=== PATIENT | female | born 1990 | race Caucasian/White ===

== ENCOUNTER → 2018-01-31 | Outpatient (CLI) | payer OTHER ==
--- NOTE | 2018-01-31 10:48 | US ---
EXAMINATION TYPE: Transabdominal DATE OF EXAM: 11/12/17 COMPARISON: NONE CLINICAL HISTORY: Z36 Confirm Dates. Patient states being unsure on LMP. Confirm dates. EXAM PERFORMED: Transabdominal (TA) EXAM MEASUREMENTS: GESTATIONAL AGE / DATING Dates by LMP: (10 weeks/2 days) EDC: 08/27/2018 Dates by Current Scan for: (11 weeks/5 days) EDC: 08/17/2018 MATERNAL ANATOMY Uterus: 12.8 x 7.0 x 6.2 cm Right Ovary: 3.3 x 2.0 x 1.9 cm Left Ovary: 3.0 x 1.6 x 1.4 cm Post CDS / Adnexa: no free fluid Presence of free fluid: no Presence of corpus luteal cyst: no Presence of subchorionic bleed: no GESTATION / SURVEY CRL: 5.0 cm (11 weeks/5 days) MSD: Seen, not measured Yolk Sac (normal less than 6mm): 4.9 mm Heart Rate: 171 bpm Rhythm: Normal IUP: Viable IUP Date of LMP: 11/20/2017, Beta HcG (if available): Not available at this time Single live IUP measuring 11 weeks 5 days. IMPRESSION: Single intrauterine gestation estimated at 11 weeks 5 days gestation based on the crown-rump length. This would have a calculated EDC of 08/17/2018.
== END | disposition home or self-care (01) ==
LOC: RADUSWWP 09:48
PROVIDERS: ATTEND Obstetrics & Gynecology
DX: Z36.9 Encounter for antenatal screening, unspecified (principal)
CPT/HCPCS: 76801

== ENCOUNTER 2018-08-14 06:09 | Inpatient (IN) | payer OTHER ==
--- NOTE | 2018-08-13 20:22 | P.HPOB ---
History of Present Illness H&P Date: 08/13/18 Chief Complaint: Scheduled repeat section with tubal ligation This is a 27-year-old female 4 para 2 with an estimated date of confinement of 08/17/2018, estimated gestational age of 39-4/7 weeks, who presents to labor and delivery for scheduled repeat section with bilateral partial salpingectomy for family planning. She admits to good movement. She denies any regular contractions. Her course has been essentially uncomplicated. labs: Hepatitis B surface antigen-negative RPR-nonreactive Rubella-immune Blood type-A- Antibody screen-negative Hemoglobin-12.5 Random glucose-116 Obstetrical ultrasound-normal anatomy Quad screen-negative One hour Glucola-147 Three-hour Glucola-within normal limits RhoGAM was given at 28 weeks Group B streptococcus-negative Obstetrical history: . History of 2 deliveries. History of 1 miscarriage. Gynecologic history: History of chlamydia treated in the past. Social history: She is single. She works in a factory. Review of Systems Constitutional: Denies chills, Denies fever Eyes: denies blurred vision, denies pain Ears, nose, mouth and throat: Denies headache, Denies sore throat Cardiovascular: Denies chest pain, Denies shortness of breath Respiratory: Denies cough Gastrointestinal: Reports abdominal pain (Irregular contractions) Genitourinary: Reports pelvic pain, Reports Musculoskeletal: Reports low back pain Integumentary: Denies pruritus, Denies rash Neurological: Denies numbness, Denies weakness Psychiatric: Denies anxiety, Denies depression Past Medical History Past Medical History: No Reported History History of Any Multi-Drug Resistant Organisms: None Reported Past Surgical History: Section Past Anesthesia/Blood Transfusion Reactions: No Reported Reaction Past Psychological History: No Psychological Hx Reported Smoking Status: Never smoker Past Alcohol Use History: None Reported Past Drug Use History: None Reported - Past Family History Father Family Medical History: Hypertension Medications and Allergies Home Medications Medication Instructions Recorded Confirmed Type Qfo-Tqtk-Lejku Acid 08/13/18 History [-U Capsule (formulary)] Allergies Allergy/AdvReac Type Severity Reaction Status Date / Time amoxicillin [Amoxicillin] Allergy Unknown Verified 10/05/14 14:48 Childhood Exam Osteopathic Statement: *. No significant issues noted on an osteopathic structural exam other than those noted in the History and Physical/Consult. HEENT: Within normal limits Heart: Regular rate and rhythm Lungs: Clear to auscultation bilaterally Abdomen: Cervix: Closed/60%/-2 heart tones: 140s by Doppler Extremities: Negative Homans Assessment and Plan (1) Family planning Status: Acute Code(s): Z30.09 - ENCOUNTER FOR [facility] GENERAL CNSL AND ADVICE ON CONTRACEPTION SNOMED Code(s): 945507271 (2) 39 weeks gestation of Status: Acute Code(s): Z3A.39 - 39 WEEKS GESTATION OF SNOMED Code( s): 59169134 Plan: Proceed with repeat low transverse section with bilateral partial salpingectomy. I have discussed the risks, benefits, and alternative therapies for the above- mentioned procedure and for both sedation/anesthesia as well as necessary blood products administration, if indicated, as they pertain to this patient. The patient has indicated her understanding and acceptance of the risks and procedures discussed.
[2018-08-14] MEDS ORDERED: LIDOCAINE 1% 20 ML VIAL (10MG/ML) FOR IV START INTRADERMA PRN (06:23)
[2018-08-14] MEDS ORDERED: ceFAZolin IN SWFI 2 GM/20 ML SYRINGE IVP ONE (06:23)
[2018-08-14] MEDS ORDERED: LACTATED RINGERS 1,000 ML IV ONE (06:23)
[2018-08-14] MEDS ORDERED: CITRIC ACID-SODIUM CITRATE 15 ML CUP PO ONE (06:23)
[2018-08-14 06:34] VITALS: BMI 45.3
[2018-08-14 07:01] LABS: Anisocytosis Slight; Basophils % (A) 0 %; Eosinophils # (A) 0.1 k/uL (0-0.7); Eosinophils % (A) 1 %; HCT 34.8 % (34.0-46.0); HGB 11.5 gm/dL (11.4-16.0); Lymphocytes # (A) 2.5 k/uL (1.0-4.8); Lymphocytes % (A) 25 %; MCH 26.7 pg (25.0-35.0); MCHC 33.1 g/dL (31.0-37.0); MCV 80.9 fL (80.0-100.0); Mean Platelet Volume 7.3; Monocytes # (A) 0.4 k/uL (0-1.0); Monocytes % (A) 4 %; Neutrophils # (A) 6.7 k/uL (1.3-7.7); Neutrophils % (A) 68 %; Platelet Count 261 k/uL (150-450); Poikilocytosis Slight; RBC 4.31 m/uL (3.80-5.40); RDW 17.3 % (11.5-15.5); WBC 9.9 k/uL (3.8-10.6)
[2018-08-14] MEDS ORDERED: MORPHINE SULFATE (PF) 0.3 MG/0.3 ML SYR ONE (07:52)
[2018-08-14] MEDS ORDERED: OXYTOCIN 10 UNIT/ML 1 ML VIAL ONE (07:52)
[2018-08-14] MEDS ORDERED: PHENYLEPHRINE-0.9% NACL SYG 1 MG/10 ML SYRINGE ONE (07:52)
[2018-08-14] MEDS ORDERED: LACTATED RINGERS 1,000 ML BAG IV ONE (07:52)
--- NOTE | 2018-08-14 08:40 | P.OP ---
Date of Procedure: 08/14/18 Preoperative Diagnosis: 1. Intrauterine at 39-4/7 weeks. 2. History of previous section. 3. Family-planning. Postoperative Diagnosis: Same Procedure(s) Performed: Repeat low transverse section with bilateral partial salpingectomy Anesthesia: spinal (Duramorph) Surgeon: Mily Guerin [employer] Sales Representative #1: Paulino Ocampo Estimated Blood Loss (ml): 400 Pathology: other (Portions of right and left fallopian tubes) Condition: stable Disposition: floor Indications for Procedure: This is a 27-year-old female 4 para 2 with an estimated date of confinement of 08/27/2018, estimated gestational age of 39-4/7 weeks, who presents for scheduled repeat section with bilateral partial salpingectomy for family planning. I have discussed the risks, benefits, and alternative therapies for the above- mentioned procedure and for both sedation/anesthesia as well as necessary blood products administration, if indicated, as they pertain to this patient. The patient has indicated her understanding and acceptance of the risks and procedures discussed. Operative Findings: A viable female is noted in the vertex presentation with scores of 9 at 1 minute and 9 at 5 minutes and infant weight of 7 lbs. 4 oz. Nuchal cord times one was noted. Normal uterus tubes and ovaries are noted. Description of Procedure: The patient is taken to the operating room where she is placed in the dorsal supine position with leftward tilt after spinal Duramorph anesthesia is given. She is prepped and draped in the normal sterile fashion. Skin was tested and found to be adequately anesthetized. A Pfannenstiel skin incision was made with a scalpel through the previous laparotomy scar. A second knife was used to carry the incision down to the underlying layer of fascia. The fascia was nicked in the midline with a scalpel and then extended laterally bilaterally with Lentz scissors. The anterior lip of the fascia was grasped with 2 Olamide clamps and then dissected off the underlying rectus muscle in the midline with Lentz scissors. The inferior aspect of the fascial incision was grasped with 2 Olamide clamps and dissected off the underlying rectus muscle and the midline with Lentz scissors. Next the peritoneum layer was tented up with 2 hemostats and then entered sharply with the scalpel. The incision is extended superiorly and inferiorly with Metzenbaum scissors. Next a DeLee retractor is placed. The vesicouterine peritoneum is entered sharply with Metzenbaum scissors and extended laterally bilaterally with Metzenbaum scissors and then the bladder flap is pushed inferiorly. The lower uterine segment is incised in transverse fashion with the scalpel and then bluntly entered with a hemostat. Clear fluid is noted. The incision was then extended laterally bilaterally with 2 fingers. Next the infant's head is delivered through the incision. Nose and mouth are bulb suctioned. Nuchal cord times one was reduced around the 's head. The remainder of the infant is easily delivered and placed on mother's abdomen. Cord is clamped and cut. Infant is taken to warmer by nursing staff. Cord blood was obtained secondary to Rh- status. Uterine fundus is gently massaged and placenta is delivered manually. Uterus is exteriorized and cleared of all clots and debris. Uterine incision is closed with 0 Vicryl suture in a running locked fashion. A second layer of 0 Vicryl suture is used in a running fashion for hemostasis. Good hemostasis is noted. Attention is then turned to the tubes. The right fallopian tube is grasped in the midportion with a hemostat. The mesosalpinx is entered with Bovie cautery. 0 Vicryl suture is tied 2 times around both the proximal and distal portion of the tube. The knuckle of tube was then removed with Metzenbaum scissors. The ends of the tube were then cauterized with Bovie cautery. Excellent hemostasis is noted. The same procedure is carried out on the left fallopian tube. Good hemostasis is noted. Posterior cul-de-sac is suctioned of all clots and debris. Uterus is returned to the abdomen. Incision is noted to be hemostatic. Both tubal sites are inspected and noted to be hemostatic. Peritoneal layer is closed with 0 Vicryl suture in a running fashion. Muscle layer is reapproximated with 0 Vicryl suture in interrupted fashion. Fascia layer is then closed with 0 PDS suture with 2 sutures meeting in the midline and the knots buried in either side and in the midline. The subcutaneous tissue was then closed with 2-0 Vicryl suture. Skin layer was then closed with sebastian. All sponge and needle counts are correct. The patient is taken to recovery room in stable condition.
[2018-08-14] MEDS ORDERED: LANOLIN CREAM 5 GM TUBE TOPICAL PRN (09:16)
[2018-08-14] MEDS ORDERED: ACETAMINOPHEN TAB 325 MG TAB PO PRN (09:16)
[2018-08-14] MEDS ORDERED: ONDANSETRON 4 MG/2 ML VIAL IVP PRN (09:16)
[2018-08-14] MEDS ORDERED: METOCLOPRAMIDE 5 MG/ML 2 ML VIAL IVP PRN (09:16)
[2018-08-14] MEDS ORDERED: OXYTOCIN 20 UNITS/1000 ML NS 1,000 ML IV SCH (09:16)
[2018-08-14] MEDS ORDERED: ZOLPIDEM 5 MG TAB PO PRN (09:16)
[2018-08-14] MEDS ORDERED: diphenhydrAMINE 25 MG CAP PO PRN (09:16)
[2018-08-14] MEDS ORDERED: diphenhydrAMINE 50 MG CAP PO PRN (09:16)
[2018-08-14] MEDS ORDERED: NALOXONE 0.4 MG/ML 1 ML VIAL IV PRN (09:16)
[2018-08-14] MEDS ORDERED: diphenhydrAMINE 50 MG/ML 1 ML VIAL IVP PRN ×2 (09:16)
[2018-08-14] MEDS: KETOROLAC 30 MG/ML 1 ML VIAL IVP PRN (17:14)
[2018-08-14] MEDS ORDERED: Rhogam IMMUNE GLOBULIN 1,500 UNIT/1 ML IM ONE (18:44)
[2018-08-14] MEDS: SENNOSIDES-DOCUSATE SODIUM 1 EACH TAB PO SCH ×2 (20:01→22:18)
[2018-08-14] MEDS: LACTATED RINGERS 1,000 ML IV SCH ×2 (22:00→22:17)
[2018-08-15] MEDS: KETOROLAC 30 MG/ML 1 ML VIAL IVP PRN ×2 (00:53→06:22)
--- NOTE | 2018-08-15 07:15 | P.PN ---
Progress Note - Text Date:08/15 Time:658 Patient is status post . Patient seen this morning with VAS score of 4.no c/o of pruritus, no c/o nausea/vomiting, comfortable and doing well.
[2018-08-15] MEDS: SENNOSIDES-DOCUSATE SODIUM 1 EACH TAB PO SCH ×2 (07:48→19:20)
[2018-08-15 08:15] LABS: Anisocytosis Slight; Basophils % (A) 0 %; Eosinophils # (A) 0.1 k/uL (0-0.7); Eosinophils % (A) 1 %; HCT 30.7 % (34.0-46.0); Hypochromasia Slight; Lymphocytes # (A) 1.6 k/uL (1.0-4.8); Lymphocytes % (A) 21 %; MCH 25.8 pg (25.0-35.0); MCHC 31.3 g/dL (31.0-37.0); MCV 82.5 fL (80.0-100.0); Mean Platelet Volume 7.1; Monocytes # (A) 0.3 k/uL (0-1.0); Monocytes % (A) 4 %; Neutrophils # (A) 5.4 k/uL (1.3-7.7); Neutrophils % (A) 71 %; Platelet Count 225 k/uL (150-450); Poikilocytosis Slight; RBC 3.72 m/uL (3.80-5.40); RDW 17.5 % (11.5-15.5); WBC 7.6 k/uL (3.8-10.6)
[2018-08-15 08:28] LABS: HGB 9.6 gm/dL (11.4-16.0)
--- NOTE | 2018-08-15 08:54 | P.PNOBGPC ---
Subjective - Subjective Principal diagnosis: Status post repeat section with tubal ligation postoperative day # Interval history: Patient is doing okay. She is sore but her pain is fairly well controlled with her pain medication. Lochia is decreasing. She is bottle feeding. She is urinating. She is passing flatus but no bowel movement yet. Patient reports: Reports appetite normal, Reports voiding normally, Reports pain well controlled, Reports ambulating normally : doing well, bottle feeding Objective - Vital Signs Latest vital signs: Vital Signs Temp Pulse Resp BP Pulse Ox 08/15/18 08:00 98.3 F 89 17 127/80 100 08/15/18 04:00 98.6 F 102 H 16 123/74 96 08/15/18 00:00 97.4 F L 110 H 16 121/80 97 08/14/18 20:00 97.7 F 99 16 128/82 08/14/18 16:00 97.5 F L 105 H 18 134/73 98 08/14/18 11:38 16 08/14/18 10:48 98.4 F 85 16 129/82 08/14/18 10:15 97.7 F 93 16 131/70 08/14/18 09:47 97.3 F L 89 16 138/88 08/14/18 09:32 97.8 F 95 16 111/60 08/14/18 09:17 97.7 F 82 16 103/56 08/14/18 09:03 96.6 F L 79 16 101/51 Intake and Output 08/14/18 08/15/18 08/15/18 22:59 06:59 14:59 Output Total 400 300 Balance -400 -300 Output: Urine 400 300 Uretheral (Chaves) 400 300 - Exam Extremities: Present: normal. Absent: tenderness Abdomen: Present: normal appearance, soft (Positive bowel sounds 4). Absent: distention, tenderness Incision: Present: normal, dry, intact. Absent: erythematous Uterus: Present: normal, firm. Absent: tenderness Assessment and Plan Assessment: Status post repeat section with bilateral partial salpingectomy postoperative day #1 (1) Family planning Current Visit: No Status: Acute Code(s): Z30.09 - ENCOUNTER FOR [facility] GENERAL CNSL AND ADVICE ON CONTRACEPTION SNOMED Code(s): 651335257 (2) 39 weeks gestation of Current Visit: No Status: Acute Code(s): Z3A.39 - 39 WEEKS GESTATION OF SNOMED Code(s): 50888834 Plan: Continue with postoperative care. Will advance diet as tolerated. Will switch to oral pain medications today.
[2018-08-15] MEDS: HYDROcodone/APAP 5-325MG 1 EACH TAB PO PRN ×3 (10:22→23:08)
[2018-08-15] MEDS: IBUPROFEN 600 MG TAB PO PRN ×2 (14:43→21:00)
[2018-08-16] MEDS: HYDROcodone/APAP 7.5-325MG 1 EACH TAB PO PRN ×2 (03:01→09:18)
[2018-08-16] MEDS: IBUPROFEN 600 MG TAB PO PRN (06:10)
[2018-08-16] MEDS: SENNOSIDES-DOCUSATE SODIUM 1 EACH TAB PO SCH (07:52)
[2018-08-16 08:03] VITALS: BP 129/80; PULSE 91; RESP 17; TEMP 98.1
--- NOTE | 2018-08-16 08:16 | P.PNOBGPC ---
Subjective - Subjective Patient reports: Reports appetite normal, Reports voiding normally, Reports pain well controlled, Reports ambulating normally : doing well Objective - Vital Signs Latest vital signs: Vital Signs Temp Pulse Resp BP Pulse Ox 08/16/18 08:00 98.1 F 91 17 129/80 99 08/16/18 00:00 98.2 F 111 H 18 140/82 98 08/15/18 15:46 98.7 F 78 16 140/75 - Exam Lungs: bilateral: normal Chest: Normal S1, Normal S2 Extremities: Present: normal Abdomen: Present: normal appearance, soft. Absent: distention, tenderness Incision: Present: normal, dry, intact Uterus: Present: normal, firm - Labs Labs: Abnormal Lab Results - Last 24 Hours (Table) 08/15/18 Range/Units 06:45 RBC 3.72 L (3.80-5.40) m/uL Hgb 9.6 L D (11.4-16.0) gm/dL Hct 30.7 L (34.0-46.0) % RDW 17.5 H (11.5-15.5) % Assessment and Plan Assessment: Postoperative day #2. Patient is resting without complaints wishes to go home. Vital signs are stable and she is afebrile. Incision is intact and dry. Patient's tolerating regular diet, urinating, ambulating without difficulty. My impression is a normal postoperative course late is to continue routine postoperative care discharge home later today. (1) delivery delivered Current Visit: No Status: Acute Code(s): O82 - ENCOUNTER FOR DELIVERY WITHOUT INDICATION SNOMED Code(s): 383672092
--- NOTE | 2018-08-16 08:24 | P.DS ---
Providers Date of admission: 08/14/18 06:09 Expected date of discharge: 08/16/18 Attending physician: Mily Guerin Primary care physician: Stated None - Discharge Diagnosis(es) (1) delivery delivered Current Visit: No Status: Acute Hospital Course: Please see dictated H&P and delivery note per Dr. Guerin on this patient's admission. In brief summary this is a pleasant 27-year-old 4 para 2 female estimated gestational age 39-4/7 weeks is admitted for elective repeat section and tubal ligation. Patient is admitted undergoes uncomplicated repeat section and tubal ligation. Postoperative 2 patient is doing well felt be stable for discharge home follow up with Dr. Guerin in 1 week. Procedures: Repeat low transverse section and bilateral partial salpingectomy Patient Condition at Discharge: Good Plan - Discharge Summary New Discharge Prescriptions: New Ibuprofen [Motrin] 600 mg PO Q6HR PRN #60 tab PRN Reason: Mild Pain Or Fever >= 100.5 Continue Tso-Rbio-Gtnxj Acid [-U Capsule (formulary)] 1 tab PO ONCE Discharge Medication List Qnz-Xioo-Gekhh Acid [-U Capsule (formulary)] 1 tab PO ONCE 09/30 [History] Ibuprofen [Motrin] 600 mg PO Q6HR PRN #60 tab 08/15/18 [Rx] Follow up Appointment(s)/Referral(s): Mily Guerin DO [Doctor of Osteopathic Medicine] - 08/22/18 1:30 pm (Please see Dr. Guerin on September 25 at 2 PM for your check as well. ) Patient Instructions/Handouts: (DC) Activity/Diet/Wound Care/Special Instructions: Instructions 1. Do not begin any exercise program for 3 weeks. 2. Do not resume sexual relations for 3 weeks or longer if uncomfortable. 3. You may take tub baths or showers at any time. 4. You may use tampons if desired after 3 weeks. 5. Keep the area of episiotomy (stitches) clean and dry. 6. If you are not nursing, wear a good fitting, supportive bra during the day and limit fluid intake for at least 1 week to prevent breast engorgement. 7. Call the office, [phone], within the next week to make appointment for your 6 week checkup if it has not already been made. 8. Report any of the following occurrences to the doctor promptly: a. Heavy, excessive bleeding b. Chills, fever c. Burning or frequency of urination d. Pain or redness and breasts if nursing e. Increasing pain or swelling in episiotomy (stitches). In addition to the above instructions, the following additional should be followed: 1. No heavy lifting or straining (exercising) until after 6 week checkup. 2. Keep abdominal incision clean and dry: You may wear a dressing if more comfortable. 3. Make office appointment for 10 days after going home or as instructed by her doctor. Discharge Disposition: HOME SELF-CARE
== END 2018-08-16 11:20 | disposition home or self-care (01) | DRG 785 ==
LOC: 4FBP 06:09
PROVIDERS: ADMIT Obstetrics & Gynecology; ATTEND Obstetrics & Gynecology
PROC: 0UB70ZZ Excision of Bilateral Fallopian Tubes, Open Approach (ICD-10-PCS; 2018-08-14)
PROC: 10D00Z1 Extraction of Products of Conception, Low, Open Approach (ICD-10-PCS; principal; 2018-08-14 08:00)
DX: O34.211 Maternal care for low transverse scar from previous cesarean delivery (principal); O69.81X0 Labor and delivery complicated by cord around neck, without compression, not applicable or unspecified; O26.893 Other specified pregnancy related conditions, third trimester; Z67.11 Type A blood, Rh negative; Z37.0 Single live birth; Z3A.39 39 weeks gestation of pregnancy; Z88.0 Allergy status to penicillin; Z86.19 Personal history of other infectious and parasitic diseases; Z82.49 Family history of ischemic heart disease and other diseases of the circulatory system
CPT/HCPCS: 85025; 85461; 86850; 86900; 86901; 88302

== ENCOUNTER 2024-12-21 21:22 | Emergency (ER) | payer OTHER ==
--- NOTE | 2024-12-21 21:36 | ED ---
General Adult HPI - General Chief complaint: Dental/Oral Stated complaint: Dental Issues Time Seen by Provider: 12/21/24 21:29 Source: patient, RN notes reviewed Mode of arrival: ambulatory Limitations: no limitations - History of Present Illness Initial comments: 34-year-old female presenting to the emergency department with complaints of bleeding post dental extraction that occurred at 10 AM this morning. Patient had 3 teeth extracted and was informed that bleeding should cease a hour after. She began to notice that there was mild bleeding of the lower gum where 2 teeth were extracted and sutures were placed. Patient denies dizziness, lightheadedness. Denies blood thinner use. Has not taken any medications since the extraction for pain. - Related Data Home Medications Medication Instructions Recorded Confirmed Ctc-Ykuq-Sekqs Acid 1 tab PO ONCE 08/13/18 08/14/18 [-U Capsule (formulary)] Previous Rx's Medication Instructions Recorded Ibuprofen [Motrin] 600 mg PO Q6HR PRN #60 tab 08/15/18 HYDROcodone/APAP 5-325MG [[place] 2 each PO Q4HR PRN #36 tab 08/16/18 5-325] Oseltamivir [Tamiflu] 75 mg PO Q12HR #10 cap 09/20/24 Allergies Allergy/AdvReac Type Severity Reaction Status Date / Time amoxicillin [Amoxicillin] Allergy Unknown Verified 12/21/24 21:26 Childhood Review of Systems ROS Statement: Those systems with pertinent positive or pertinent negative responses have been documented in the HPI. ROS Other: All systems not noted in ROS Statement are negative. Past Medical History Past Medical History: No Reported History History of Any Multi-Drug Resistant Organisms: None Reported Past Surgical History: Section Past Anesthesia/Blood Transfusion Reactions: No Reported Reaction Past Psychological History: No Psychological Hx Reported Smoking Status: Never smoker Past Alcohol Use History: None Reported Past Drug Use History: None Reported - Past Family History Father Family Medical History: Hypertension General Exam Limitations: no limitations General appearance: alert, in no apparent distress Expanded Teeth exam: Present: other (right mandibular 2 dental extraction and maxillary posterior right dental extraction, bleeding controlled) Neck exam: Present: normal inspection. Absent: tenderness, meningismus, lymphadenopathy Respiratory exam: Present: normal lung sounds bilaterally. Absent: respiratory distress, wheezes, rales, rhonchi, stridor Cardiovascular Exam: Present: regular rate, normal rhythm, normal heart sounds. Absent: systolic murmur, diastolic murmur, rubs, gallop, clicks GI/Abdominal exam: Present: soft, normal bowel sounds. Absent: distended, tenderness, guarding, rebound, rigid Extremities exam: Present: normal inspection, full ROM, normal capillary refill. Absent: tenderness, pedal edema, joint swelling, calf tenderness Back exam: Present: normal inspection Course Vital Signs 12/21/24 12/21/24 21:24 22:27 Temperature 98.0 F 98.7 F Pulse Rate 70 66 Respiratory 18 16 Rate Blood Pressure 142/92 112/77 O2 Sat by Pulse 100 100 Oximetry Medical Decision Making - Medical Decision Making Was pt. sent in by a medical professional or institution (JIGAR Mcconnell, CRIMINAL INTELLIGENCE SPECIALIST, urgent care, hospital, or fci...) When possible be specific @ -No Did you speak to anyone other than the patient for history (EMS, parent, family, police, friend...)? What history was obtained from this source @ -No Did you review nursing and triage notes (agree or disagree)? Why? @ -I reviewed and agree with nursing and triage notes Were old charts reviewed (outside hosp., previous admission, EMS record, old EKG, old radiological studies, urgent care reports/EKG's, fci records)? Report findings @ -No old charts were reviewed Differential Diagnosis (chest pain, altered mental status, abdominal pain women, abdominal pain men, vaginal bleeding, weakness, fever, dyspnea, syncope, headache, dizziness, GI bleed, back pain, seizure, CVA, palpatations, mental health, musculoskeletal)? @ -Dehiscence of gingival sutures, post dental extraction gingival bleeding EKG interpreted by me (3pts min.). @ none X-rays interpreted by me (1pt min.). @ -None done CT interpreted by me (1pt min.). @ -None done U/S interpreted by me (1pt. min.). @ -None done What testing was considered but not performed or refused? (CT, X-rays, U/S, labs)? Why? @ -None What meds were considered but not given or refused? Why? @ -None Did you discuss the management of the patient with other professionals (professionals i.e. JIGAR Mcconnell, CRIMINAL INTELLIGENCE SPECIALIST, lab, RT, psych nurse, long term care social worker, manager consumer insights, teacher, senior compliance officer, protective services case worker)? Give summary @ -No Was smoking cessation discussed for >3mins.? @ -No Was critical care preformed (if so, how long)? @ -No Were there social determinants of health that impacted care today? How? (Homelessness, low income, unemployed, alcoholism, drug addiction, transportation, low edu. Level, literacy, decrease access to med. care, intermediate, rehab)? @ -No Was there de-escalation of care discussed even if they declined (Discuss DNR or withdrawal of care, Hospice)? DNR status @ -No What co-morbidities impacted this encounter? (DM, HTN, Smoking, COPD, CAD, Cancer, CVA, ARF, Chemo, Hep., AIDS, mental health diagnosis, sleep apnea, morbid obesity)? @ -None Was patient admitted / discharged? Hospital course, mention meds given and route, prescriptions, significant lab abnormalities, going to OR and other pertinent info. @ -Discharged. 34-year-old female presenting to the emergency department for complaints of gum bleeding post dental extraction. Patient's vitals are stable and patient is well-appearing. Causes removed which reveals mild blood with no continuous bleeding. Patient is observed for approximately 1 hour wtih no change in bleeding or worsening of symptoms. patient is stable for discharged with close follow up with oral surgeon. recommend patient contact surgeon in morning for further evaluation. case dsicussed with Dr. Chairez Undiagnosed new problem with uncertain prognosis? @ -No Drug Therapy requiring intensive monitoring for toxicity (Heparin, Nitro, Insulin, Cardizem)? @ -No Were any procedures done? @ -No Diagnosis/symptom? @ -Gingival bleeding post dental extraction Acute, or Chronic, or Acute on Chronic? @ -Acute Uncomplicated (without systemic symptoms) or Complicated (systemic symptoms)? @ -uncomplicated Side effects of treatment? @ -No Exacerbation, Progression, or Severe Exacerbation? @ -No Poses a threat to life or bodily function? How? (Chest pain, [place], [place], pneumonia, PE, COPD, DKA, ARF, appy, cholecystitis, CVA, Diverticulitis, Homicidal, Suicidal, threat to staff... and all critical care pts) @ -No Disposition Clinical Impression: Gingival bleeding Disposition: HOME SELF-CARE Condition: Stable Additional Instructions: Please return to the Emergency Department if symptoms worsen or any other concerns. Is patient prescribed a controlled substance at d/c from ED?: No Referrals: None,Stated [Primary Care Provider] - 1-2 days Time of Disposition: 22:21
[2024-12-21] MEDS: ACETAMINOPHEN TAB 500 MG TAB PO STA (21:41)
[2024-12-21 22:30] VITALS: BP 112/77; PULSE 66; RESP 16; TEMP 98.7
== END 2024-12-21 22:27 | disposition home or self-care (01) ==
LOC: EC 21:22
DX: K06.8 Other specified disorders of gingiva and edentulous alveolar ridge (principal); Z88.0 Allergy status to penicillin
CPT/HCPCS: 99282